=== PATIENT | male | born 2000 | race American Indian/Alaskan Native ===

== ENCOUNTER 2019-02-18 20:19 | Emergency (ER) | payer BC ==
--- NOTE | 2019-02-18 20:26 | Emergency Department Report ---
Blank Doc - Documentation Documentation: 19 y/o fall while skate boarding. Comes in with s open wound to left side of face 30min [employer]. No PMH.
[2019-02-18 20:28] VITALS: BP 114/59
[2019-02-18] MEDS ORDERED: NACL 0.9% 500 ML IR ONE (21:23)
--- NOTE | 2019-02-18 22:58 | Emergency Department Report ---
ED Head Injury/Laceration HPI - HPI Mechanism: Fall Location: Facial Pain: Mild Tetanus Status: Up to Date Symptoms: Loss of Consciousness: No, Nausea: No, Unusual Behavior: No, Headache: No, Break in Skin: Yes, Bleeding: Yes Other History: 19-year-old -[place] male was riding a skateboard when he lost his balance and fell forward despite the in the ground and followed by his head striking the ground as well. There was no loss of consciousness or loss of vision, although he did report having some mild blurred vision following the incident. No neck pain, no chest pain or shortness of breath. All symptoms have resolved. With the exception of of the laceration which was sustained due to the fall. He presents to the emergency department for treatment. ED General PMH - Social History Smoking Status: Never Smoker ED Review of Systems ROS: Stated complaint: LACERATION TO TOP OF RT EYE Other details as noted in HPI Constitutional: denies: chills, fever Eyes: denies: eye pain, eye discharge, vision change ENT: denies: ear pain, throat pain Respiratory: denies: cough, shortness of breath, wheezing Cardiovascular: denies: chest pain, palpitations Endocrine: no symptoms reported Gastrointestinal: denies: abdominal pain, nausea, diarrhea Genitourinary: denies: urgency, dysuria Musculoskeletal: denies: back pain, joint swelling, arthralgia Skin: denies: rash, lesions Neurological: denies: headache, weakness, paresthesias Psychiatric: denies: anxiety, depression Hematological/Lymphatic: denies: easy bleeding, easy bruising Head Inj w/lac Physical Exam - Exam General: Vital signs noted. No distress. Alert and acting appropriately. Adult Head Front + Back: 1 - Laceration 2 - Small area of swelling and superficial abrasion noted Head: Yes PERRL, No Hemotympanum, No Hematoma/Ecchymosis, No Epistaxis, No S tepoff/Deformity, No Abrasion, No Foreign Body Wound Length (cm): 2 Laceration Location: Frontal, Other (to the Left brow) Chest, Abd, & Ext: Yes Clear Lung Sounds, Yes Regular Heart Rhythm, No Neck Pain, No Chest Injury/Pain, No Heart Murmur, No Abdominal Tenderness, No Back Tenderness, No Extremity Injury Neuroligical (Head Inj W/O Lac: Yes Normal Speech, Yes Normal Gait, No Lethargy, No Disorientation, No Focal Numbness, No Focal Weakness ED Disposition Clinical Impression: Simple laceration of face Disposition: DC-01 TO HOME OR SELFCARE Is pt being admited?: No Does the pt Need Aspirin: No Condition: Stable Instructions: Skin Adhesive Care (ED) Referrals: PRIMARY CARE, [Primary Care Provider] - 3-5 Days
== END 2019-02-18 22:51 | disposition home or self-care (01) ==
LOC: ED 20:19
DX: S01.112A Laceration without foreign body of left eyelid and periocular area, initial encounter (principal); W01.198A Fall on same level from slipping, tripping and stumbling with subsequent striking against other object, initial encounter; Y93.51 Activity, roller skating (inline) and skateboarding; Y92.89 Other specified places as the place of occurrence of the external cause; Y99.8 Other external cause status
CPT/HCPCS: 99282